=== PATIENT | male | born 1985 | race Caucasian/White ===

== ENCOUNTER 2019-05-15 15:11 | Outpatient (CLI) | payer BC ==
--- NOTE | 2019-05-15 15:26 | RAD ---
RIGHT KNEE 4 VIEWS: HISTORY: Right knee pain. FINDINGS/IMPRESSION: No fracture, dislocation, or bony destruction is seen. POS: OFF
== END 2019-05-15 15:12 | disposition home or self-care (01) ==
LOC: RAD-FRANK 15:11
PROVIDERS: ATTEND Nurse Practitioner Family
DX: M25.561 Pain in right knee (principal)

== ENCOUNTER 2019-05-25 07:37 | Outpatient (CLI) | payer BC ==
--- NOTE | 2019-05-25 10:11 | MRI ---
MRI RIGHT KNEE: DATE: 05/25/2019. PROVIDED CLINICAL HISTORY: Right knee pain. FINDINGS: The anterior cruciate ligament, posterior cruciate ligament, medial collateral ligament, and lateral collateral ligamentous complex demonstrate an intact MRI appearance, as does the extensor mechanism. There is signal alteration involving the body-posterior horn junction of the medial meniscus which ap pears to be grade III on the basis of sagittal image 24 of series 5. The lateral meniscus demonstrat es no evidence for a tear. There is full-thickness articular cartilage fissuring involving the patellar articular cartilage at t he junction of the median ridge and lateral facet. There is subjacent subcortical cystic change. Th ere is articular cartilage irregularity and partial thickness articular cartilage loss involving the medial patellar facet. Articular cartilage appears otherwise preserved. The amount of fluid within the knee joint appears physiologic. No focal concerning regional marrow or muscular signal abnormality apparent. IMPRESSION: 1. Signal abnormality involving the medial meniscus, probably grade III on the basis of a single sag ittal slice. 2. Prominent patellar chondrosis as described. POS: OFF
== END 2019-05-25 07:38 | disposition home or self-care (01) ==
LOC: TBSIIMAG 07:37
PROVIDERS: ATTEND Orthopaedic Surgery
DX: M23.91 Unspecified internal derangement of right knee (principal); M94.8X6 Other specified disorders of cartilage, lower leg

== ENCOUNTER 2019-06-20 06:42 | Day surgery (SDC) | payer BC ==
[2019-06-19 10:16] VITALS: BMI 37.3
[2019-06-20] MEDS ORDERED: Midazolam HCl 2 mg/2 ml Vial ONE ×2 (08:27→08:34)
[2019-06-20] MEDS ORDERED: Fentanyl 100 MCG/2 ML VIAL ONE (08:27)
[2019-06-20] MEDS ORDERED: Bupivacaine PF 0.5% 30 ML VIAL ONE (08:31)
[2019-06-20] MEDS ORDERED: Bupivacaine 0.25% HCL 30 ML VIAL ONE (08:31)
[2019-06-20] MEDS ORDERED: Lidocaine 1% w/Epinephrine 1:100K 20 ML VIAL ONE (09:03)
--- NOTE | 2019-06-20 10:10 | HP ---
HISTORY OF PRESENT ILLNESS: This patient is a 34-year-old male who has had intermittent problems with his right knee with sensation of popping and instability over the past 18 years after a football injury. This gradually increased recently without repeat injury. The symptoms are interfering with day-to-day activities. He has had persistent symptoms despite rest, restriction of activities, anti-inflammatory medications, previous use of a knee brace. PAST MEDICAL HISTORY: The patient is otherwise in good health. 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 CURRENT MEDICATIONS: Include trazodone p.r.n. for sleep. ALLERGIES: HE HAS NO KNOWN ALLERGIES. FAMILY HISTORY: Otherwise unremarkable. SOCIAL HISTORY: Otherwise unremarkable. REVIEW OF SYSTEMS: Otherwise unremarkable. PHYSICAL EXAMINATION: GENERAL: Reveals a healthy male. HEENT: Unremarkable. NECK: Supple. CHEST: Clear. HEART: Regular rate, rhythm. ABDOMEN: Soft, nontender. RECTAL: Deferred. GENITAL: Deferred. EXTREMITIES: Pertinent findings of the right knee. There is no definite effusion. There is tenderness over the medial joint line. There is full range of motion. There is pain with Darrel maneuver. There is no instability. Neurovascular exam is intact. IMAGING: X-rays of the right knee are normal. MRI scan of the right knee reveals a probable medial meniscal tear and DJD of the patellofemoral joint. IMPRESSION: Internal derangement of right knee with probable medial meniscal tear, possible component of degenerative joint disease. PLAN: Arthroscopy of right knee with possible partial medial meniscectomy and/or debridement and shaving. The nature of the surgery, length recovery, potential complications such as infection, loss of motion, incomplete relief, neurovascular injury, thromboembolic phenomena, posttraumatic degenerative arthritis, recurrent tear, and need for additional treatment, repeat surgery have been discussed in detail. Job ID: [id number]
[2019-06-20] MEDS ORDERED: Promethazine HCl 25 MG/ML VIAL ONE (10:29)
--- NOTE | 2019-06-20 10:34 | OP ---
DATE OF PROCEDURE: 06/20/2019 ANESTHESIA: General. PREOPERATIVE DIAGNOSIS: Medial meniscal tear, right knee. POSTOPERATIVE DIAGNOSIS: Medial meniscal tear, right knee. PROCEDURE PERFORMED: Arthroscopy of right knee with partial medial meniscectomy. OPERATIVE FINDINGS: Examination under anesthesia revealed the knee to be stable. 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 Examination of the medial compartment revealed a displaceable bucket-handle tear of the posterior horn of the medial meniscus with some mild degenerative changes on the weightbearing surface of the medial femoral condyle and medial tibial plateau. ACL was intact. Lateral meniscus and lateral compartment were normal. DESCRIPTION OF PROCEDURE: After satisfactory anesthesia was induced in supine position, the patient was placed in a leg burden and then prepped and draped in routine manner. The right leg was elevated and exsanguinated with an Esmarch bandage and the tourniquet inflated to 300 mmHg. Bestowed arthroscope was introduced through an anterolateral portal, probed through an anteromedial portal and inflow and outflow accomplished through the scope using a Bestowed arthroscopy pump. Arthroscopy was carried out and the above findings were noted. All findings were documented with video printer and hard copies were made. The anterior horn attachment of the bucket-handle tear of the medial meniscus was divided with meniscal scissors. The posterior horn attachment was detached with meniscal scissors in the fragment avulsed and then pulled out the anteromedial portal. There was still tags anteriorly and posteriorly, which were trimmed with a motorized shaver. Intermittently changing the camera and instruments between the anterolateral and anteromedial portal for visualization. The remaining rim was balanced and probed and found to be stable. There was still an intact rim of 3 mm and the anterior horn of the meniscus was intact. The small amount of fibrillated cartilage on the undersurface of the patella was shaved with a motorized shaver. The knee was then copiously irrigated through the scope and all instruments were then withdrawn. A 30 mL of a mixture of 50% of 0.5% Marcaine and 50% of 1% lidocaine with epinephrine was instilled into the knee joint and additional 10 mL of this mixture injected about the portal sites. Portal sites were closed with 3-0 nylon and a sterile bulky compressive dressing was applied. The tourniquet deflated after 34 minutes. The foot promptly pinked up. The patient was awakened and taken to the recovery room in stable condition. There were no apparent intraoperative complications. The estimated blood loss was negligible. The patient will be discharged home in satisfactory condition, instructed on ice, elevation, use of crutches, home exercise program with Physical Therapy Department. He was given written wound care instructions and a prescription for [place] 7.5 for pain, 20 tablets. He will be rechecked in my office in 10 to 14 days or sooner if there any problems prior to that time. Job ID: [id number]
[2019-06-20] MEDS ORDERED: Dexamethasone 20 MG/5 ML VIAL ONE (11:23)
[2019-06-20] MEDS ORDERED: Lidocaine 1% PF 5 ML VIAL ONE (11:23)
[2019-06-20] MEDS ORDERED: PROPOFOL 200 MG/20 ML VIAL ONE (11:23)
[2019-06-20] MEDS ORDERED: Ondansetron PF 4 MG/2 ML Vial ONE (11:23)
[2019-06-20] MEDS ORDERED: Ketorolac Tromethamine 30 MG/ML VIAL ONE (11:23)
== END 2019-06-20 12:20 | disposition home or self-care (01) ==
LOC: SDC 06:42
PROVIDERS: ATTEND Orthopaedic Surgery
PROC: 0SBC4ZZ Excision of Right Knee Joint, Percutaneous Endoscopic Approach (ICD-10-PCS; principal; 2019-06-20)
DX: S83.241A Other tear of medial meniscus, current injury, right knee, initial encounter (principal)
CPT/HCPCS: J0690; J2250; J2550; J3010; S0020

== ENCOUNTER 2020-08-27 09:00 | Outpatient (CLI) | payer BC | END 2020-08-27 09:01 | disposition home or self-care (01) | LOC: BICULT 09:00 | PROVIDERS: ATTEND Nurse Practitioner Family | DX: R10.11 Right upper quadrant pain (principal); K80.20 Calculus of gallbladder without cholecystitis without obstruction; K76.0 Fatty (change of) liver, not elsewhere classified; N28.89 Other specified disorders of kidney and ureter | CPT/HCPCS: 76705 ==

== ENCOUNTER 2020-09-05 13:09 | Outpatient (CLI) | payer BC ==
[2020-09-05] MEDS ORDERED: Iopamidol-370 76% 500 ML 1 ML ONE (15:17)
== END 2020-09-05 13:10 | disposition home or self-care (01) ==
LOC: BICCT 13:09
PROVIDERS: ATTEND Nurse Practitioner Family
DX: D17.71 Benign lipomatous neoplasm of kidney (principal); K76.0 Fatty (change of) liver, not elsewhere classified; K80.20 Calculus of gallbladder without cholecystitis without obstruction; R10.11 Right upper quadrant pain
CPT/HCPCS: 74177; Q9967

== ENCOUNTER 2024-12-12 09:34 | Day surgery (SDC) | payer BC ==
[2024-12-03 13:10] VITALS: BMI 37.3
[2024-12-12] MEDS ORDERED: CEFAZOLIN 2 GM VIAL ONE (11:18)
[2024-12-12] MEDS ORDERED: fentaNYL PF 100 MCG/2 ML SYRINGE ONE (11:27)
[2024-12-12] MEDS ORDERED: PROPOFOL 20 ML ONE (11:27)
[2024-12-12] MEDS ORDERED: Ondansetron PF 4 MG/2 ML Vial ONE ×2 (12:23→13:24)
[2024-12-12] MEDS ORDERED: Ketorolac Tromethamine 30 MG (1 mL) VIAL ONE (12:23)
== END 2024-12-12 14:44 | disposition home or self-care (01) ==
LOC: SDC 09:34
PROVIDERS: ATTEND Student in an Organized Health Care Education/Training Program
PROC: 0QBM0ZZ Excision of Left Tarsal, Open Approach (ICD-10-PCS; principal; 2024-12-12)
DX: M89.9 Disorder of bone, unspecified (principal); E66.9 Obesity, unspecified; Z68.38 Body mass index [BMI] 38.0-38.9, adult
CPT/HCPCS: 86850; 86900; 86901; J0665; J1100; J1885; J2405; J2704